=== PATIENT | male | born 1990 | race African-American/Black ===

== ENCOUNTER 2021-02-07 15:51 | Emergency (ER) | payer OTHER ==
[~2021-02-07 15:51] MED LIST: MECLIZINE
[2021-02-07 17:19] VITALS: BP 143/91
== END 2021-02-07 18:05 | disposition home or self-care (01) ==
LOC: ER 15:51
DX: S46.911A Strain of unspecified muscle, fascia and tendon at shoulder and upper arm level, right arm, initial encounter (principal); X50.0XXA Overexertion from strenuous movement or load, initial encounter; Y93.89 Activity, other specified; Y92.89 Other specified places as the place of occurrence of the external cause; Y99.8 Other external cause status
CPT/HCPCS: 73030